=== PATIENT | female | born 2000 | race Caucasian/White ===

== ENCOUNTER 2018-06-23 18:07 | Emergency (ER) | payer OTHER ==
[~2018-06-23] VITALS: Ht 157.5 cm; Wt 59.4 kg
[2018-06-23 18:09] VITALS: TEMP 37.2; Ht 157.5 cm; Wt 59.4 kg
[2018-06-23] MEDS ORDERED: OPTIRAY 320 IV PRN (18:30)
[2018-06-23 19:09] LABS: BASO % 0.3 %; BASO ABS # 0.02 K/uL (0-0.2); EOS % 1.1 %; EOS ABS # 0.07 K/uL (0-0.5); HEMATOCRIT 38.6 % (37-47); HEMOGLOBIN 13.9 g/dL (12.0-16.0); IG# 0.01 K/uL (0.00-0.02); LYMPH % 30.8 %; MEAN CELL VOLUME 92.8 fL (80-100); MEAN CORPUSCULAR HEMOGLOBIN 33.4 pg (25-34); MEAN PLATELET VOLUME 9.8 fL (7.4-10.4); MONO % 7.1 %; MONO ABS # 0.44 K/uL (0.11-0.59); NEUT % 60.5 %; NEUT ABS # 3.73 K/uL (1.4-6.5); PLATELET COUNT 255 K/uL (130-400); RED CELL DISTRIBUTION WIDTH CV 11.9 % (11.5-14.5); WHITE BLOOD COUNT 6.17 K/uL (4.8-10.8)
[2018-06-23] MEDS ORDERED: BCPILLS PO (19:20)
[2018-06-23 19:28] LABS: ALBUMIN 4.2 gm/dl (3.4-5.0); CALCIUM 9.2 mg/dl (8.5-10.1); CREATININE 0.94 mg/dl (0.60-1.20); POTASSIUM 3.7 mmol/L (3.5-5.1); TOTAL PROTEIN 8.4 gm/dl (6.4-8.2)
--- NOTE | 2018-06-23 21:22 | DIAGNOSTIC IMAGING REPORT ---
CT OF THE ABDOMEN AND PELVIS WITH CONTRAST CLINICAL HISTORY: Right lower quadrant abdominal pain. COMPARISON STUDY: None. TECHNIQUE: Following IV administration of 94 mL of Optiray-320, axial images of the abdomen and pelvis were obtained from the lung bases to the proximal femurs. Images were reviewed in the axial, sagittal, and coronal planes. IV contrast was administered without complication. A dose lowering technique was utilized adhering to the principles of ALARA. Oral contrast was administered. CT DOSE: 270.02 mGy.cm FINDINGS: Lung bases are clear. Liver, spleen, adrenal glands, kidneys and pancreas are normal. There is no biliary or pancreatic ductal dilatation. There is no hydronephrosis. No pneumatosis, free air or portal venous gas is present. The appendix is normal. There is no free fluid. Ovaries are not enlarged. There is no lymphadenopathy. Both nephrograms are symmetric. Note is made of bilateral L4 pars defect without anterolisthesis. There is no suspicious osseous lesion. IMPRESSION: No acute process within the abdomen or pelvis. Normal appendix. No bowel obstruction. Electronically signed by: Eloy Busby M.D. 06/23/2018 9:20 PM Dictated Date/Time: 06/23/2018 9:14 PM
[2018-06-23] MEDS ORDERED: NITROFURANTOIN MONOHYDRATE 100 MG CAP PO STA (21:41)
[2018-06-23] MEDS ORDERED: NITR-5 PO (21:43)
[2018-06-23 22:00] VITALS: BP 112/70; PULSE 77; O2SAT 99
--- NOTE | 2018-06-24 00:46 | EMERGENCY ROOM VISIT NOTE ---
History Report prepared by Regina: Emma Martinez Under the Supervision of: Dr. Chris Moe M.D. First contact with patient: 18:12 Chief Complaint: ABDOMINAL PAIN Stated Complaint: PAIN ON RIGHT SIDE OF STOMACH History of Present Illness The patient is a 17 year old female who presents to the Emergency Room with complaints of sharp RLQ abdominal pain that began yesterday. The patient notes that the pain is constant, and it does not radiate to her back. She stated that the pain started at the location, but it is not as painful as it was yesterday. The patient complained of a tactile fever, but notes that she didn't check it. She notes that she thought she had one because she was sweating last. She denies any vomiting, diarrhea, difficulty urinating, hematuria, abnormal vaginal discharge or bleeding, and difficulty with bowel movements. Source of History: patient Onset: 1 day ago Position: abdomen (RLQ) Quality: sharp Timing: constant Associated Symptoms: + fevers, + diaphoresis, No vomiting, No back pain, No diarrhea, No urinary symptoms Note: The patient denies any vaginal discharge or bleeding and difficulty with bowel movements. Review of Systems See HPI for pertinent positives & negatives. A total of 10 systems reviewed and were otherwise negative. 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 Family History No significant family history Social History Smoking Status: Never Smoker Marital Status: single Housing Status: lives with roommate Occupation Status: [employer] student Current/Historical Medications Scheduled Control Pills ( Control Pills), 1 TAB PO DAILY Nitrofurantoin Monohyd Macrocr (Macrobid), 100 MG PO BID Allergies Coded Allergies: No Known Allergies (Unverified , 06/23/18) Physical Exam Vital Signs Date Time Temp Pulse Resp B/P (MAP) Pulse Ox O2 Delivery O2 Flow Rate FiO2 06/23/18 22:00 77 18 112/70 99 06/23/18 20:16 76 20 110/68 99 Room Air 06/23/18 18:09 37.2 93 17 131/90 94 Room Air Physical Exam Constitutional: Vital signs reviewed. Eyes: Prosthetic left eye. Right pupils is round reactive to light. Conjunctiva are noninjected. ENT: Pharynx is clear without erythema or exudate. Mucous membranes are moist. Neck supple without meningeal signs. Respiratory: Clear to auscultation bilaterally. Breath sounds are equal bilaterally. Cardiovascular: Regular rate and rhythm. No rubs or gallops. GI: Soft, nondistended and RLQ tender. No rebound tenderness. Bowel sounds are present. Musculoskeletal: No peripheral edema. No CVA tenderness. Integumentary: No cyanosis. Neurological: The patient is awake and alert. No focal deficits. Psychiatric: Normal affect. Medical Decision & Procedures ER Provider Diagnostic Interpretation: Radiology results as stated below per my review and the radiologist's interpretation: CT OF THE ABDOMEN AND PELVIS WITH CONTRAST CLINICAL HISTORY: Right lower quadrant abdominal pain. COMPARISON STUDY: None. TECHNIQUE: Following IV administration of 94 mL of Optiray-320, axial images of the abdomen and pelvis were obtained from the lung bases to the proximal femurs. Images were reviewed in the axial, sagittal, and coronal planes. IV contrast was administered without complication. A dose lowering technique was utilized adhering to the principles of ALARA. Oral contrast was administered. CT DOSE: 270.02 mGy.cm FINDINGS: Lung bases are clear. Liver, spleen, adrenal glands, kidneys and pancreas are normal. There is no biliary or pancreatic ductal dilatation. There is no hydronephrosis. No pneumatosis, free air or portal venous gas is present. The appendix is normal. There is no free fluid. Ovaries are not enlarged. There is no lymphadenopathy. Both nephrograms are symmetric. Note is made of bilateral L4 pars defect without anterolisthesis. There is no suspicious osseous lesion. IMPRESSION: No acute process within the abdomen or pelvis. Normal appendix. No bowel obstruction. Electronically signed by: Eloy Busby M.D. 06/23/2018 9:20 PM Dictated Date/Time: 06/23/2018 9:14 PM Laboratory Results 06/23/18 18:55 Red Blood Count 4.16, Mean Corpuscular Volume 92.8, Mean Corpuscular Hemoglobin 33.4, Mean Corpuscular Hemoglobin Concent 36.0, Mean Platelet Volume 9.8, Neutrophils (%) (Auto) 60.5, Lymphocytes (%) (Auto) 30.8, Monocytes (%) (Auto) 7.1, Eosinophils (%) (Auto) 1.1, Basophils (%) (Auto) 0.3, Neutrophils # (Auto) 3.73, Lymphocytes # (Auto) 1.90, Monocytes # (Auto) 0.44, Eosinophils # (Auto) 0.07, Basophils # (Auto) 0.02 06/23/18 18:55 Test 06/23/18 18:35 06/23/18 18:55 Urine Color YELLOW Urine Appearance CLEAR (CLEAR) Urine pH 6.0 (4.5-7.5) Urine Specific [place] 1.005 (1.000-1.030) Urine Protein NEG (NEG) Urine Glucose (UA) NEG (NEG) Urine Ketones NEG (NEG) Urine Occult Blood NEG (NEG) Urine Nitrite NEG (NEG) Urine Bilirubin NEG (NEG) Urine Urobilinogen NEG (NEG) Urine Leukocyte Esterase TRACE (NEG) Urine WBC (Auto) /hpf (0-5) Urine RBC (Auto) /hpf (0-4) Urine Hyaline Casts (Auto) /lpf (0-5) Urine Epithelial Cells (Auto) /lpf (0-5) Urine Bacteria (Auto) (NEG) Urine RBC 0-4 /hpf (0-4) Urine WBC 0 /hpf (0-5) Urine Epithelial Cells >30 /lpf (0-5) Urine Bacteria 2+ (NEG) Urine Test NEG (NEG) White Blood Count 6.17 K/uL (4.8-10.8) Red Blood Count 4.16 M/uL (4.2-5.4) Hemoglobin 13.9 g/dL (12.0-16.0) Hematocrit 38.6 % (37-47) Mean Corpuscular Volume 92.8 fL (80-100) Mean Corpuscular Hemoglobin 33.4 pg (25-34) Mean Corpuscular Hemoglobin Concent 36.0 g/dl (32-36) Platelet Count 255 K/uL (130-400) Mean Platelet Volume 9.8 fL (7.4-10.4) Neutrophils (%) (Auto) 60.5 % Lymphocytes (%) (Auto) 30.8 % Monocytes (%) (Auto) 7.1 % Eosinophils (%) (Auto) 1.1 % Basophils (%) (Auto) 0.3 % Neutrophils # (Auto) 3.73 K/uL (1.4-6.5) Lymphocytes # (Auto) 1.90 K/uL (1.2-3.4) Monocytes # (Auto) 0.44 K/uL (0.11-0.59) Eosinophils # (Auto) 0.07 K/uL (0-0.5) Basophils # (Auto) 0.02 K/uL (0-0.2) RDW Standard Deviation 40.0 fL (36.4-46.3) RDW Coefficient of Variation 11.9 % (11.5-14.5) Immature Granulocyte % (Auto) 0.2 % Immature Granulocyte # (Auto) 0.01 K/uL (0.00-0.02) Anion Gap 9.0 mmol/L (3-11) Est Creatinine Clear Calc Drug Dose 76.2 ml/min Estimated GFR () 101.9 Estimated GFR (Non- 88.0 BUN/Creatinine Ratio 9.3 (10-20) Calcium Level 9.2 mg/dl (8.5-10.1) Total Bilirubin 0.4 mg/dl (0.2-1) Direct Bilirubin 0.1 mg/dl (0-0.2) Aspartate Amino Transf (AST/SGOT) 18 U/L (15-37) Alanine Aminotransferase (ALT/SGPT) 23 U/L (12-78) Alkaline Phosphatase 67 U/L (45-117) Total Protein 8.4 gm/dl (6.4-8.2) Albumin 4.2 gm/dl (3.4-5.0) Lipase 107 U/L (73-393) Laboratory results as reviewed by me. Medications Administered Medications (Trade) Dose Ordered Sig/Darren Route Start Time Stop Time Status Last Admin Dose Admin Nitrofurantoin Macrocrystals (Macrobid Cap) 100 mg NOW STAT PO 06/23/18 21:41 06/23/18 21:42 DC 06/23/18 21:58 100 MG ED Course 1813: The patient was evaluated in room C4. A complete history and physical exam was performed. 2139: Upon reevaluation, the patient appeared to have improvement of her symptoms. I discussed florentin's findings with her. I had her friends leave the room and asked if she was sexually active or if she was concerned for an infection. She said no. I offered a pelvic exam, but she denied at this time. She verbalized agreement of the treatment plan. The patient was discharged home. 2140: Ordered Macrobid Cap 100 mg PO. Medical Decision This is a 17-year-old female presents with right-sided abdominal pain. Differential diagnosis includes acute appendicitis, abscess, perforation, irritable bowel syndrome, ovarian cyst, PID, ectopic , kidney stone. I did perform a limited focused review of portions of the patient's old chart on the electronic medical record. The patient has had no recent pertinent visits to this hospital. I did evaluate the patient as noted above. She is presenting with right lower quadrant abdominal pain. IV access was established. I did order and personally review the patient's urine analysis as described above. She does have leukocyte esterase and bacteria. Urine culture was sent. Urine test is negative. She was treated with Macrobid. I did order and review the patient's blood work as noted in the electronic medical record. Her white blood cell count is not elevated. I did order a CT of the abdomen and pelvis. I did review the images myself as well as the radiology report as described above. This did not show any acute process. Her ovaries are normal in size. She does not have acute appendicitis. I did reassess the patient. I did discuss the test results with her. At this time the cause of her pain is unclear. She did decline pelvic examination. Her workup here is negative and so I did feel she was safe for discharge but I did recommend she follow-[facility] closely with [facility]. She was discharged in good condition. She was given a prescription for Macrobid. Medication Reconcilliation Current Medication List: was personally reviewed by me Blood Pressure Screening Patient's blood pressure: Elevated blood pressure Blood pressure disposition: Elevated BP felt to be situational Impression Primary Impression: Right lower quadrant abdominal pain Additional Impression: UTI (urinary tract infection) Scribe Attestation The scribe's documentation has been prepared under my direct and personally reviewed by me in its entirety. I confirm that the note above accurately reflects all work, treatment, procedures, and medical decision making performed by me. Departure Information Dispostion Home / Self-Care Prescriptions Nitrofurantoin Monohyd Macrocr (Macrobid) 100 Mg Cap 100 MG PO BID, #14 CAP Prov: Chris Moe M.D. 06/23/18 Forms HOME CARE DOCUMENTATION FORM, IMPORTANT VISIT INFORMATION Patient Instructions My [facility] Additional Instructions You have been examined and treated today on an emergency basis only. This is not a substitute for, or an effort to provide, complete comprehensive medical care. It is impossible to recognize and treat all injuries or illnesses in a single emergency department visit. It is therefore important that you follow up closely with [facility] within 48 hours. Call as soon as possible for an appointment. Return for worsening symptoms or if you develop fever, vomiting, or any other concerning symptoms. Problem Qualifiers Additional Impression: UTI (urinary tract infection) Urinary tract infection type: acute cystitis Hematuria presence: without hematuria Qualified Codes: N30.00 - Acute cystitis without hematuria
== END 2018-06-23 22:00 | disposition home or self-care (01) ==
LOC: C.EDB 18:09 → C.EDC 22:00
DX: R10.31 Right lower quadrant pain (principal); N30.00 Acute cystitis without hematuria; Z79.3 Long term (current) use of hormonal contraceptives